=== PATIENT | male | born 2000 | race Two or more races ===

== ENCOUNTER 2022-11-25 16:33 | Inpatient (IN) | payer SELFPAY ==
[2022-11-25] MEDS ORDERED: Sodium Chloride 0.9% 10 ML Syringe FLUSH PRN (17:03)
[2022-11-25] MEDS ORDERED: HYDROmorphone 0.5 MG/0.5 ML Syringe IVPUSH ONE (17:04)
[2022-11-25] MEDS ORDERED: Sodium Chloride 0.9% 1,000 ML IV ONE (17:04)
[2022-11-25] MEDS ORDERED: Ondansetron 4 MG/2 ML SDV IVPUSH ONE (17:12)
[2022-11-25 17:48] LABS: GAMMA GLUTAMYL TRANSFERASE,GGT 15 U/L (15-85); LIPASE 47 U/L (73-393)
[2022-11-25] MEDS ORDERED: Piperacillin/Tazobactam 4.5 GM in Sodium Chloride 0.9% 100 ML IV ONE (18:31)
[2022-11-25] MEDS: Sodium Chloride 0.9% 1,000 ML IV ONE (21:27)
[2022-11-25] MEDS: HYDROmorphone 0.5 MG/0.5 ML Syringe IVPUSH PRN (23:16)
[2022-11-25] MEDS ORDERED: HYDROmorphone 0.5 MG/0.5 ML Syringe IVPUSH PRN (23:31)
[2022-11-25] MEDS ORDERED: fentaNYL 100 MCG/2 ML SDV IVPUSH PRN (23:31)
[2022-11-25] MEDS ORDERED: Ondansetron 4 MG/2 ML SDV IVPUSH PRN (23:31)
[2022-11-25] MEDS ORDERED: Bupivacaine 0.5%/EPINEPHrine 1:200,000 50 ML MDV ONE (23:48)
[2022-11-25] MEDS ORDERED: Lidocaine 1% 30 ML SDV ONE (23:48)
[2022-11-25] MEDS ORDERED: Ondansetron 4 MG/2 ML SDV ONE (23:50)
[2022-11-25] MEDS ORDERED: Midazolam 1 MG/ML 2 ML SDV ONE (23:50)
[2022-11-25] MEDS ORDERED: Propofol 200 MG/20 ML SDV ONE (23:50)
[2022-11-25] MEDS ORDERED: Rocuronium 50 MG/5 ML Vial ONE (23:50)
[2022-11-25] MEDS ORDERED: Lidocaine 1% 5 ML VIAL ONE (23:50)
[2022-11-25] MEDS ORDERED: fentaNYL 100 MCG/2 ML SDV ONE (23:50)
[2022-11-26] MEDS ORDERED: Dexamethasone 4 MG/ML 5 ML MDV ONE (00:17)
[2022-11-26] MEDS ORDERED: Neostigmine Methylsulfate 10 MG/10 ML MDV ONE (00:31)
[2022-11-26] MEDS ORDERED: fentaNYL 100 MCG/2 ML SDV ONE (00:34)
[2022-11-26] MEDS ORDERED: Ketorolac 30 MG/ML SDV ONE (00:54)
[2022-11-26] MEDS ORDERED: Lactated Ringers 1,000 ML ONE (01:30)
[2022-11-26] MEDS ORDERED: Morphine 2 MG/ML SYRINGE IVPUSH PRN (01:34)
[2022-11-26] MEDS ORDERED: Piperacillin/Tazobactam 4.5 GM in Sodium Chloride 0.9% 100 ML IV SCH (02:00)
[2022-11-26] MEDS: Sodium Chloride 0.9% 1,000 ML IV ONE (05:13)
[2022-11-26] MEDS: Piperacillin/Tazobactam 4.5 GM in Sodium Chloride 0.9% 100 ML IV SCH ×3 (05:13→20:56)
[2022-11-26 07:07] LABS: BASOPHILS ABSOLUTE AUTO 0.01 K/mm3 (0.01-0.08); EOSINOPHILS PERCENT AUTO 0 (0.8-7.0); HEMATOCRIT 42.4 % (40.1-51.0); HEMOGLOBIN 14.5 gm/dl (13.7-17.5); LYMPHOCYTES ABSOLUTE AUTO 0.74 K/mm3 (1.32-3.57); LYMPHOCYTES PERCENT AUTO 3.6 % (21.8-53.1); MEAN CORPUSCULAR HEMOGLOBIN 29.2 pg (25.7-32.2); MEAN CORPUSCULAR HGB CONC 34.2 g/dl (32.2-35.5); MEAN CORPUSCULAR VOLUME 85.5 fl (79.0-92.2); MEAN PLATELET VOLUME 11.7 fl (9.4-12.3); MONOCYTES ABSOLUTE AUTO 1.13 K/mm3 (0.30-0.82); MONOCYTES PERCENT AUTO 5.5 % (5.3-12.2); NEUTROPHILS ABSOLUTE AUTO 18.82 K/mm3 (1.78-5.38); NEUTROPHILS PERCENT AUTO 90.9 % (34.0-67.9); PLATELET COUNT,PLT 159 K/mm3 (163-337); RED BLOOD CELL COUNT 4.96 M/mm3 (4.63-6.08)
[2022-11-26 07:26] LABS: ANION GAP 12.2 (5-15); BUN/CREATININE RATIO 13.3 (14-18); CALCIUM 8.5 mg/dL (8.5-10.1); CREATININE 1.2 mg/dL (0.7-1.3); EST CRCL DRUG DOSING (CG) 84.77 mL/min; POTASSIUM,K 4.2 mEq/L (3.5-5.1)
[2022-11-26] MEDS: Ketorolac 15 MG/ML SDV IM SCH ×3 (08:02→18:44)
[2022-11-26] MEDS: Sodium Chloride 0.9% 1,000 ML IV SCH ×3 (08:03→21:40)
[2022-11-26 08:40] LABS: SLIDE REVIEW NORMAL SMEAR
[2022-11-26] MEDS: HYDROmorphone 0.5 MG/0.5 ML Syringe IVPUSH PRN (11:53)
[2022-11-26] MEDS ORDERED: Sodium Chloride 0.9% 1,000 ML IV SCH ×2 (12:45→14:15)
[2022-11-26] MEDS: oxyCODONE 5 MG Tab PO PRN (15:12)
[2022-11-26] MEDS: Ondansetron 4 MG/2 ML SDV IVPUSH PRN (20:54)
[2022-11-27] MEDS: Ketorolac 15 MG/ML SDV IM SCH (00:36)
[2022-11-27] MEDS: oxyCODONE 5 MG Tab PO PRN (03:22)
[2022-11-27] MEDS: Ondansetron 4 MG/2 ML SDV IVPUSH PRN ×2 (03:54→22:00)
[2022-11-27] MEDS: Piperacillin/Tazobactam 4.5 GM in Sodium Chloride 0.9% 100 ML IV SCH ×3 (05:05→20:38)
[2022-11-27] MEDS: Sodium Chloride 0.9% 1,000 ML IV SCH ×3 (05:37→21:56)
[2022-11-27 06:52] LABS: ANION GAP 12.8 (5-15); BUN/CREATININE RATIO 21.8 (14-18); CALCIUM 8.4 mg/dL (8.5-10.1); CREATININE 1.1 mg/dL (0.7-1.3); EST CRCL DRUG DOSING (CG) 96.56 mL/min; POTASSIUM,K 3.8 mEq/L (3.5-5.1)
[2022-11-27 06:53] LABS: BASOPHILS ABSOLUTE AUTO 0.01 K/mm3 (0.01-0.08); BASOPHILS PERCENT AUTO 0.1 % (0.1-1.2); EOSINOPHILS PERCENT AUTO 0 (0.8-7.0); HEMATOCRIT 40.1 % (40.1-51.0); HEMOGLOBIN 13.7 gm/dl (13.7-17.5); IMMATURE GRAN ABSOLUTE AUTO 0.05 K/mm3 (0.00-0.10); IMMATURE GRAN PERCENT AUTO 0.3 % (<=1.0); LYMPHOCYTES ABSOLUTE AUTO 0.99 K/mm3 (1.32-3.57); LYMPHOCYTES PERCENT AUTO 5.4 % (21.8-53.1); MEAN CORPUSCULAR HGB CONC 34.2 g/dl (32.2-35.5); MEAN PLATELET VOLUME 11.5 fl (9.4-12.3); MONOCYTES ABSOLUTE AUTO 1.07 K/mm3 (0.30-0.82); MONOCYTES PERCENT AUTO 5.8 % (5.3-12.2); NEUTROPHILS ABSOLUTE AUTO 16.36 K/mm3 (1.78-5.38); NEUTROPHILS PERCENT AUTO 88.4 % (34.0-67.9); PLATELET COUNT,PLT 160 K/mm3 (163-337); RED BLOOD CELL COUNT 4.72 M/mm3 (4.63-6.08); WHITE BLOOD CELL COUNT,WBC 18.48 K/mm3 (4.23-9.07)
[2022-11-28] MEDS: Piperacillin/Tazobactam 4.5 GM in Sodium Chloride 0.9% 100 ML IV SCH ×3 (04:35→20:52)
[2022-11-28] MEDS: oxyCODONE 5 MG Tab PO PRN ×5 (04:42→22:29)
[2022-11-28] MEDS: Sodium Chloride 0.9% 1,000 ML IV SCH ×3 (06:31→22:19)
[2022-11-29 05:12] LABS: BASOPHILS ABSOLUTE AUTO 0.03 K/mm3 (0.01-0.08); BASOPHILS PERCENT AUTO 0.3 % (0.1-1.2); EOSINOPHILS ABSOLUTE AUTO 0.18 K/mm3 (0.04-0.54); EOSINOPHILS PERCENT AUTO 1.5 (0.8-7.0); HEMATOCRIT 38.7 % (40.1-51.0); HEMOGLOBIN 13.1 gm/dl (13.7-17.5); IMMATURE GRAN ABSOLUTE AUTO 0.03 K/mm3 (0.00-0.10); IMMATURE GRAN PERCENT AUTO 0.3 % (<=1.0); LYMPHOCYTES ABSOLUTE AUTO 0.89 K/mm3 (1.32-3.57); LYMPHOCYTES PERCENT AUTO 7.6 % (21.8-53.1); MEAN CORPUSCULAR HEMOGLOBIN 28.5 pg (25.7-32.2); MEAN CORPUSCULAR HGB CONC 33.9 g/dl (32.2-35.5); MEAN CORPUSCULAR VOLUME 84.1 fl (79.0-92.2); MEAN PLATELET VOLUME 9.8 fl (9.4-12.3); MONOCYTES ABSOLUTE AUTO 1.62 K/mm3 (0.30-0.82); MONOCYTES PERCENT AUTO 13.8 % (5.3-12.2); NEUTROPHILS ABSOLUTE AUTO 9.03 K/mm3 (1.78-5.38); NEUTROPHILS PERCENT AUTO 76.5 % (34.0-67.9); PLATELET COUNT,PLT 169 K/mm3 (163-337); WHITE BLOOD CELL COUNT,WBC 11.78 K/mm3 (4.23-9.07)
[2022-11-29] MEDS: Piperacillin/Tazobactam 4.5 GM in Sodium Chloride 0.9% 100 ML IV SCH ×3 (05:14→21:57)
[2022-11-29] MEDS: oxyCODONE 5 MG Tab PO PRN ×2 (05:31→21:55)
[2022-11-29 05:44] LABS: SLIDE REVIEW NORMAL SMEAR
[2022-11-29] MEDS: Sodium Chloride 0.9% 1,000 ML IV SCH (06:03)
[2022-11-29] MEDS ORDERED: Sodium Chloride 0.9% 10 ML Syringe FLUSH PRN (09:35)
[2022-11-29] MEDS: Acetaminophen 325 MG Tab PO PRN (21:54)
[2022-11-30] MEDS: Piperacillin/Tazobactam 4.5 GM in Sodium Chloride 0.9% 100 ML IV SCH (06:04)
[2022-11-30] MEDS: Acetaminophen 325 MG Tab PO PRN (06:04)
== END 2022-11-30 10:56 | disposition home or self-care (01) | DRG 853 ==
LOC: JD.ED 16:33 → JD.SDS 23:41 → JD.ICU 23:45 → JD.MS 11-29 16:30
PROVIDERS: ADMIT Surgery; ATTEND Surgery
PROC: 3E03329 Introduction of Other Anti-infective into Peripheral Vein, Percutaneous Approach (ICD-10-PCS; 2022-11-25)
PROC: 0DTJ4ZZ Resection of Appendix, Percutaneous Endoscopic Approach (ICD-10-PCS; principal; 2022-11-26)
DX: A41.9 Sepsis, unspecified organism (principal); K35.33 Acute appendicitis with perforation, localized peritonitis, and gangrene, with abscess; K56.7 Ileus, unspecified; J45.909 Unspecified asthma, uncomplicated; Z79.899 Other long term (current) drug therapy
CPT/HCPCS: 00840; 36415; 51702; 74177; 74177-26; 76705; 76705-26; 80048; 82977; 83690; 85025; 96361; 96365; 96375; 96376; 99285; 99285-25; A9270-GY; J1100; J1170; J1885; J2250; J2405; J2543; J2704; J2710; J3010; J3490; J7030; J7120